=== PATIENT | male | born 1940 | race Caucasian/White ===

== ENCOUNTER → 2020-02-08 08:58 | Outpatient (CLI) | payer MEDICARE, SELFPAY ==
--- NOTE | ~2020-02-08 | XR_ITS ---
EXAMINATION: XR hip RT min 2V DATE: 02/08/2020 09:20 INDICATION: Right hip pain. TECHNIQUE: 2 views of right hip were obtained. COMPARISON: None. FINDINGS: Bone alignment is normal. No fracture. There is advanced right hip osteoarthritis. IMPRESSION: 1. Advanced right hip osteoarthritis. Reviewed, dictated and finalized at location A.
== END ==
PROVIDERS: PCP Family Medicine; Visit Provider Family Medicine
DX: M16.11 Unilateral primary osteoarthritis, right hip (principal)
CPT/HCPCS: 73502

== ENCOUNTER 2020-08-30 00:10 | Emergency (ER) | payer MEDICARE, SELFPAY ==
--- NOTE | ~2020-08-30 | XR_ITS ---
EXAMINATION: XR chest 1V portable INDICATION: Chest pain TECHNIQUE: Portable AP chest at 0047 hours COMPARISON: None available FINDINGS: The lungs are free of acute opacities. There is no pleural effusion or pneumothorax. The ca rdiomediastinal silhouette is normal. There is a prominent epicardial fat pad at the left costophreni c angle. Advanced osteoarthritis is noted in the right shoulder. IMPRESSION: 1. No acute cardiopulmonary abnormality. Reviewed, dictated and finalized at location A.
[2020-08-30 00:19] VITALS: BP 207/93; PULSE 84; RESP 18; TEMP 36.6; O2SAT 96
[2020-08-30] MEDS: ASPIRIN 81 MG CHEWABLE TABLET 324 MG PO (00:36)
--- NOTE | 2020-08-30 00:42 | ED.GENADULT ---
HPI - General Adult General Chief complaint: Chest Pain Stated complaint: CP Time Seen by Provider: 08/30/20 00:19 History of Present Illness HPI narrative: Patient 80-year-old gentleman who presents to the emergency department with chief complaint of chest pain. The patient reports that he was laying down sleeping the night woke up with a fullness feeling in the lower portion of his chest. The patient denies tearing sensation denies a ripping sensation the patient reports that it feels like a heaviness states it was moderate to severe when he was at home and it subsequently improved and is almost gone by the time he arrived to the emergency department. Patient denies abdominal pain denies vomiting denies diarrhea. Patient does report that he has history of an abdominal aortic aneurysm that is followed as an outpatient and has been told that it has not changed in approximately a year in size. Patient stated that the pain did not radiate to his shoulder or back or to his neck. Related Data Allergies Allergy/AdvReac Type Severity Reaction Status Date / Time pravastatin Allergy Unknown Rash Verified 08/08/20 09:32 Review of Systems Review of Systems: Narrative: A 10 system review of systems was completed on the patient and is negative except for what is stated in the HPI. Nursing and ancillary documentation was reviewed. [facility] Past Medical History Medical History AAA (abdominal aortic aneurysm) Chronic right hip pain Degenerative joint disease (DJD) of hip Dyslipidemia Essential (primary) hypertension Type 2 diabetes mellitus without complications Surgical History Surgical History History of hernia repair Family History Family History Mother Family history of kidney disease Father Family history of coronary artery disease Sibling Family history of heart disease in male family member before age 55 Social History Social History Smoking packs per day: 0.5 Smoking cigarettes per day: 10.0 Years smoked: 15 Smoking pack-years: 7.50 Smoking status: Former smoker Smoking end date: 06/06/87 Alcohol intake: current Substance use: never Substance use type: does not use Gender identity (if verbalized by the patient): Male Exam Narrative: Exam Narrative: GENERAL: Well-appearing, well-nourished, and in no acute distress. HEAD: Normocephalic, atraumatic. EYES: PERRLA and EOMI. ENT: Nares clear, no rhinorrhea or epistaxis. Mucous membranes moist. NECK: Supple. CHEST: Clear to auscultation. No respiratory distress. HEART: Regular rate and rhythm. No murmur heard. Normal peripheral pulses. ABDOMEN: Soft, nontender, nondistended, normal active bowel sounds. EXTREMITIES: Normal range of motion. No edema. SKIN: Warm, dry, no rash. NEURO: No focal deficits. Alert and oriented x3. PSYCH: Normal mood and affect. Course Vital Signs Vital signs: Vital Signs Temperature 36.6 C 08/30/20 00:19 Pulse Rate 84 08/30/20 00:19 Respiratory Rate 18 08/30/20 00:19 Blood Pressure 207/93 H 08/30/20 00:19 Pulse Oximetry 96 08/30/20 00:19 Temperature 36.6 C 08/30/20 00:19 Pulse Rate 73 08/30/20 03:06 Respiratory Rate 18 08/30/20 03:06 Blood Pressure 158/82 H 08/30/20 03:06 Pulse Oximetry 97 08/30/20 03:06 Medical Decision Making Vital Signs Vital Signs: Vital Signs Temperature 36.6 C 08/30/20 00:19 Pulse Rate 84 08/30/20 00:19 Respiratory Rate 18 08/30/20 00:19 Blood Pressure 207/93 H 08/30/20 00:19 Pulse Oximetry 96 08/30/20 00:19 Temperature 36.6 C 08/30/20 00:19 Pulse Rate 73 08/30/20 03:06 Respiratory Rate 18 08/30/20 03:06 Blood Pressure 158/82 H 08/30/20 03:06 Pulse Oximetry 97 08/30/20 0
[2020-08-30 00:47] LABS: Basophils Absolute Auto 0.1 K/mm3 (0.0-0.1); Basophils Percent Auto 0.6 % (0.2-1.2); Eosinophils Absolute Auto 0.3 K/mm3 (0-0.3); Eosinophils Percent Auto 4.3 % (0-4.4); Hematocrit 41.4 % (42.0-52.0); Hemoglobin 13.4 g/dL (14.0-18.0); Immature Granulocyte Absolute 0.03 K/mm3 (0.00-0.031); Immature Granulocyte Percent A 0.4 % (0-0.5); Lymphocytes Absolute Auto 1.59 K/mm3 (0.9-3.2); Lymphocytes Percent Auto 20.3 % (18.3-44.2); Mean Corpuscular HGB Conc 32.4 g/dl (32-36); Mean Corpuscular Hemoglobin 29.4 pg (26-34); Mean Corpuscular Volume 90.8 fl (80-100); Mean Platelet Volume 9.5 fl (7.4-10.4); Monocytes Absolute Auto 0.9 K/mm3 (0.1-0.6); Monocytes Percent Auto 10.8 % (2.6-8.5); Neutrophils Percent Auto 63.6 % (45.5-73.1); Platelet Count Result 202 k/mm3 (150-375); Red Blood Count 4.56 M/mm3 (4.6-6.20); Red Cell Distribution Width 13.6 % (11.5-14.5); White Blood Count 7.8 K/mm3 (4.5-10.0)
[2020-08-30 00:59] LABS: INR 0.9; Prothrombin Time 13.1 Seconds (11.1-14.7)
[2020-08-30 01:00] LABS: Partial Thromboplastin Time 31.9 SECONDS (22.3-36.8)
[2020-08-30 01:02] LABS: Alanine Aminotransferase 51 U/L (4-50); Albumin Level 3.7 g/dL (3.5-5.1); Alkaline Phosphatase 55 U/L (38-126); Anion Gap 5 mmol/L (8-16); Aspartate Amino Transferase 83 U/L (17-59); Bilirubin,Total 0.4 mg/dL (0.2-1.3); Blood Urea Nitrogen 35 mg/dL (9-20); Calcium 8.4 mg/dL (8.4-10.2); Carbon Dioxide 28 mmol/L (22-30); Chloride 106 mmol/L (98-107); Estimated CRCL calculation 43 ml/min; Estimated Glomerular Filt Rate 45; Glucose 104 mg/dL (75-110); Lipase 293 U/L (23-300); Potassium 4.2 mmol/L (3.4-5.0); Sodium 139 mmol/L (137-145)
[2020-08-30 01:13] LABS: NT Pro B Type Natriuretic Pept 116 PG/ML (5-100); Troponin I < 0.012 ng/mL (0.000-0.034)
[2020-08-30 02:05] VITALS: BP 156/83; PULSE 75; RESP 16; O2SAT 98
[2020-08-30 03:06] VITALS: BP 158/82; PULSE 73; RESP 18; O2SAT 97
[2020-08-30 03:51] LABS: Troponin I < 0.012 ng/mL (0.000-0.034)
--- NOTE | 2020-08-30 04:07 | ECG_ITS ---
Measurements Intervals [place] Rate: 82 P: 36 SD: 168 QRS: -36 QRSD: 93 T: 12 QT: 336 QTc: 394 Interpretive Statements SINUS RHYTHM LEFT AXIS DEVIATION POOR R WAVE PROGRESSION, ANTERIOR LEADS INFERIOR INFARCT, AGE INDETERMINATE ABNORMAL ECG Electronically Signed On 08-30-2020 7:51:42 CDT by aTyo Aburto D.O.
[2020-08-30 04:13] VITALS: BP 151/81; PULSE 80; RESP 18; O2SAT 97
== END 2020-08-30 04:15 | disposition home or self-care (01) ==
PROVIDERS: Emergency Provider Emergency Medicine; PCP Family Medicine
DX: R07.89 Other chest pain (principal); I71.4 Abdominal aortic aneurysm, without rupture; E78.5 Hyperlipidemia, unspecified; I10 Essential (primary) hypertension; E11.9 Type 2 diabetes mellitus without complications; M16.10 Unilateral primary osteoarthritis, unspecified hip; Z87.891 Personal history of nicotine dependence; R94.31 Abnormal electrocardiogram [ECG] [EKG]
CPT/HCPCS: 36415; 71045; 80053; 83690; 83880; 84484; 85025; 85610; 85730; 93005; 99284; A9270

== ENCOUNTER 2020-09-17 08:24 | Outpatient (CLI) | payer MEDICARE, SELFPAY ==
[2020-09-17 08:53] LABS: Alanine Aminotransferase 139 U/L (4-50); Albumin Level 4.1 g/dL (3.5-5.1); Alkaline Phosphatase 139 U/L (38-126); Anion Gap 5 mmol/L (8-16); Aspartate Amino Transferase 48 U/L (17-59); Bilirubin,Total 1.7 mg/dL (0.2-1.3); Blood Urea Nitrogen 26 mg/dL (9-20); Calcium 9.1 mg/dL (8.4-10.2); Carbon Dioxide 31 mmol/L (22-30); Chloride 105 mmol/L (98-107); Estimated Glomerular Filt Rate 49; Glucose 104 mg/dL (75-110); Potassium 4.9 mmol/L (3.4-5.0); Sodium 141 mmol/L (137-145)
== END 2020-09-17 08:25 | disposition home or self-care (01) ==
PROVIDERS: PCP Family Medicine; Visit Provider Family Medicine
DX: R94.5 Abnormal results of liver function studies (principal)
CPT/HCPCS: 36415; 80053

== ENCOUNTER 2020-09-23 08:46 | Outpatient (CLI) | payer MEDICARE, SELFPAY ==
[2020-09-23 09:47] LABS: Alanine Aminotransferase 66 U/L (4-50); Albumin Level 3.9 g/dL (3.5-5.1); Alkaline Phosphatase 91 U/L (38-126); Anion Gap 5 mmol/L (8-16); Aspartate Amino Transferase 39 U/L (17-59); Blood Urea Nitrogen 29 mg/dL (9-20); Calcium 8.7 mg/dL (8.4-10.2); Carbon Dioxide 28 mmol/L (22-30); Chloride 106 mmol/L (98-107); Estimated Glomerular Filt Rate 42; Glucose 126 mg/dL (75-110); Potassium 4.4 mmol/L (3.4-5.0); Sodium 139 mmol/L (137-145)
== END 2020-09-23 08:47 | disposition home or self-care (01) ==
PROVIDERS: PCP Family Medicine; Visit Provider Family Medicine
DX: R94.5 Abnormal results of liver function studies (principal)
CPT/HCPCS: 36415; 80053

== ENCOUNTER 2020-10-01 08:21 | Outpatient (CLI) | payer MEDICARE, SELFPAY ==
--- NOTE | ~2020-10-01 | US_ITS ---
EXAMINATION: US abdomen limited EXAM DATE: 10/01/2020 09:43 INDICATION: R94.5 - Abnormal results of liver function studies. TECHNIQUE: Multiple grayscale and Doppler images of the abdomen right upper quadrant were obtained (rickie y a technologist who performed the scan) and subsequently reviewed. There is no prior study for julianne eric. FINDINGS: The pancreatic head and body are normal in appearance. The pancreatic tail is not visualized. The l iver has normal echogenicity and contour. There are no focal liver lesions identified. There is no evidence of intrahepatic biliary duct dilation. Portal venous flow was seen in the hepatopedal, nor mal direction and has normal Doppler waveform. No right-sided hydronephrosis. Common bile duct measures 2 mm, which is normal. The gallbladder is distended with wall normal in thi ckness. No sonographic evidence of pericholecystic fluid. Scattered small isoechoic regions along t he gallbladder wall, could be polyps or poorly calcified cholelithiasis. One of these does demonstrat e some shadowing more consistent with cholelithiasis. Couldn't confidently assess mobility due to the undistended gallbladder. Technologist performing exam reports patient did not demonstrate sonographi c Simon's sign. Please note that this sign is less reliable in patients who have received pain medi cation. IMPRESSION: Small gallbladder polyposis and/or cholelithiasis. Reviewed, dictated and finalized at location A.
== END 2020-10-01 08:22 | disposition home or self-care (01) ==
LOC: ANHIMG 08:25
PROVIDERS: PCP Family Medicine; Visit Provider Family Medicine
DX: R94.5 Abnormal results of liver function studies (principal); K82.4 Cholesterolosis of gallbladder
CPT/HCPCS: 76705

== ENCOUNTER 2020-10-07 08:01 | Outpatient (CLI) | payer MEDICARE, SELFPAY ==
[2020-10-07 10:06] LABS: Add Urine Microscopic? NO; Appearance Urine Clear (Clear); Bilirubin Urine Negative (Negative); Blood Urine Negative (Negative); Color Urine Yellow (Yellow); Glucose Urine UA Negative (Negative); Ketones Urine Negative (Negative); Leukocyte Esterase Ur Negative LEU/UL (Negative); Nitrate Urine Negative (Negative); Protein Urine Negative (Negative); Specific Grav Ur 1.016 (1.001-1.035); Urobilinogen Urine Negative mg/dL (<2.0)
[2020-10-07 10:14] LABS: Albumin Level 4.2 g/dL (3.5-5.1)
[2020-10-07 10:20] LABS: Hemoglobin A1C 5.8 % (<5.7)
[2020-10-07 10:33] LABS: Urine Cotinine NEGATIVE
== END 2020-10-07 08:02 | disposition home or self-care (01) ==
LOC: ANHSURGERY 08:04
PROVIDERS: PCP Family Medicine; Visit Provider Orthopaedic Surgery
DX: M16.11 Unilateral primary osteoarthritis, right hip (principal); Z01.818 Encounter for other preprocedural examination
CPT/HCPCS: 80307; 81003; 82040; 83036; 87081

== ENCOUNTER 2020-10-09 11:52 | Outpatient (CLI) | payer MEDICARE, SELFPAY ==
[2020-10-09 12:15] LABS: Anion Gap 8 mmol/L (8-16); Blood Urea Nitrogen 31 mg/dL (9-20); Calcium 9.2 mg/dL (8.4-10.2); Carbon Dioxide 26 mmol/L (22-30); Chloride 106 mmol/L (98-107); Estimated Glomerular Filt Rate 42; Glucose 86 mg/dL (75-110); Potassium 4.9 mmol/L (3.4-5.0); Sodium 140 mmol/L (137-145)
== END 2020-10-09 11:53 | disposition home or self-care (01) ==
LOC: ANHSURGERY 11:54
PROVIDERS: PCP Family Medicine; Visit Provider Orthopaedic Surgery
DX: E11.9 Type 2 diabetes mellitus without complications (principal); Z01.818 Encounter for other preprocedural examination
CPT/HCPCS: 36415; 80048

== ENCOUNTER → 2020-10-18 00:35 | Outpatient (CLI) | payer MEDICARE, SELFPAY ==
[2020-10-18 19:43] LABS: SARS-CoV-2 RNA PCR Negative
== END ==
PROVIDERS: PCP Family Medicine; Visit Provider Orthopaedic Surgery
DX: Z01.812 Encounter for preprocedural laboratory examination (principal); Z20.822 Contact with and (suspected) exposure to COVID-19
CPT/HCPCS: C9803; U0003; U0005

== ENCOUNTER 2020-10-21 01:00 | Day surgery (SDC) | payer MEDICARE, SELFPAY ==
[2020-10-07 08:19] VITALS: BMI 30.7
--- NOTE | 2020-10-20 13:12 | WPDANESEPPF ---
Anes - Initial Pre Proc Eval Procedure: Operation Date: 10/21/20 07:30 Proposed Procedures p Right Total Hip Arthroplasty - Jan David MD Date/Time: 10/20/20 13:12 Surgeon: Jan David MD Pre Op Diagnosis: Right Hip DJD Patient Data Age: 80 Gender: M Height: 5 ft 10 in Weight: 97 kg Allergies Allergy/AdvReac Type Severity Reaction Status Date / Time pravastatin Allergy Unknown Rash Verified 10/21/20 07:09 Baptuas-Dpt-Ssy Reductase AdvReac Joint Verified 10/21/20 07:09 Inhibitor Pain, MUSCLE ACHES Home Medications Medication Instructions Recorded Confirmed Type enalapril maleate 20 mg PO QAM 10/07/20 10/21/20 History gj-cvcc-ipvua-lycopene-ginkgo 1 tablet PO DAILY 10/07/20 10/21/20 History [Daily Multiple For Men 50+] tamsulosin 0.4 mg PO HS 10/07/20 10/21/20 History metformin 500 mg tablet,extended 500 mg PO QAM #90 tablet 10/12/20 10/21/20 Rx release 24 hr Patient hx anesthesia problems: none Family hx anesthesia problems: none PMFSH Past Medical History Medical History AAA (abdominal aortic aneurysm) Chronic right hip pain Degenerative joint disease (DJD) of hip Dyslipidemia Essential (primary) hypertension Type 2 diabetes mellitus without complications Surgical History Surgical History History of hernia repair Family History Family History Mother Family history of kidney disease Father Family history of coronary artery disease Sibling Family history of heart disease in male family member before age 55 Social History Social History Smoking packs per day: 0.5 Smoking cigarettes per day: 10.0 Years smoked: 20 Smoking pack-years: 10.00 Smoking status: Former smoker Tobacco type: cigarettes Smoking end date: 12/05/79 Alcohol intake: current Substance use: never Substance use type: does not use Living arrangements: alone Gender identity (if verbalized by the patient): Male Spiritual care concerns: No Anes - Eval Final PreProcedure Day of Procedure 10/20/20 13:12 Patient weight: overweight Heart: regular rate and rhythm Lungs: clear to auscultation Airway: Mallampati scale class III Neurological: alert and oriented Last oral intake: >/= 8 hours ASA classification: III Emergent: no Anesthetic plan: proceed Anesthesia type and monitoring: general ETT and standard monitoring Informed Consent: The patient's anesthetic plan and its attendant risks and benefits were discussed with the patient/family/POA. Questions were solicited and answers provided to the satisfaction of the patient/family/POA.
[2020-10-21] VITALS (14 sets, daily range): BP systolic 121–142; BP diastolic 61–75; PULSE 67–100; RESP 12–18; TEMP 35.8–37.1; O2SAT 93–98; BMI 30.2
--- NOTE | ~2020-10-21 | XR_ITS ---
EXAMINATION: XR hip RT 1V DATE: 10/21/2020 10:31 INDICATION: Right hip arthroplasty. Postop. TECHNIQUE: A single view of right hip was obtained. COMPARISON: Right hip radiographs 10/09/2020 FINDINGS: There is a total right hip arthroplasty in near-anatomic alignment. No fracture. There is g as in the soft tissues, consistent with recent surgery. IMPRESSION: 1. Total right hip arthroplasty in near-anatomic alignment. Reviewed, dictated and finalized at location A.
[2020-10-21] MEDS: LACTATED RINGERS 1,000 ML 30 ML IV CONT ×2 (06:51→10:13)
[2020-10-21] MEDS: ACETAMINOPHEN 500 MG TABLET 1000 MG PO (06:52)
[2020-10-21] MEDS: TRANEXAMIC ACID 1,000MG/ISO100 1,000 MG/100 ML BAG 200 MG IVPB (06:52)
[2020-10-21 07:09] LABS: Glucose Point of Care 97 (65-105)
--- NOTE | 2020-10-21 07:22 | WPDHPUPDATE1 ---
History and Physical Update Update Date/Time: 10/21/20 07:23 History and Physical has been reviewed, including an updated exam of the patient. There are NO changes in the patient's condition. Risks, benefits, and alternatives have been discussed and questions answered. Patient agrees to proceed with procedure.
[2020-10-21] MEDS: ceFAZolin 2 GM/D5W 50 ML 2 GM/50 ML BAG IVPB ×2 (07:40→16:57)
[2020-10-21] MEDS: TRANEXAMIC ACID 1,000 MG/10 ML AMPUL 1000 MG IV PUSH (09:26)
--- NOTE | 2020-10-21 10:21 | PM.PROC ---
Procedure Note - Detailed Date of procedure: 10/21/20 Pre-op diagnosis: Right Hip DJD R HIP DJD Post-op diagnosis: same Procedure performed: R OMI Description of procedure: THE PATIENT WAS TAKEN TO THE OPERATING ROOM IN STABLE CONDITION AND WAS PLACED IN THE LATERAL DECUBITUS AND THE RIGHT LOWER EXTREMITY WAS PREPPED AND DRAPED IN THE STERILE FASHION. INCISION WAS MADE IN THE POSTERIOR LATERAL SIDE OF THE HIP, DOWN TO THE FASCIA LAYER. THE FASCIA WAS INCISED. THE HIP WAS EXPOSED. THE SHORT EXTERNAL ROTATORS WERE EXPOSED. THE SCIATIC NERVE WAS IDENTIFIED. THERE WAS A HIGH BIFURCATION OF THE NERVE. INCISION WAS MADE THROUGH THE SORT EXTERNAL ROTATORS AND THE CAPSULE OF THE HIP JOINT. THE HIP WAS DISLOCATED. AN OSTEOTOMY WAS MADE TO THE FEMORAL NECK ABOUT 1 CM PROXIMAL TO THE LESSER TROCHANTER. THE ACETABULUM WAS EXPOSED. THERE WAS SEVERE DJD SEEN. BEGINNING WITH A 44 REAMER THE ACETABULUM WAS REAMED TO 53 MM. A 53 MM TRIAL WAS PLACED IN 35 DEG OF ABDUCTION AND ANTEVERSION WAS IN ALIGNMENT WITH THE TRANS ACETABULAR LIGAMENT. THE FIT WAS EXCELLENT. THE TRIAL WAS REMOVED. A 54 MM BIOMET G7 COMPONENT WAS THEN TAPPED IN TO PLACE IN 35 DEG OF ABDUCTION AND ANTEVERSION IN ALIGNMENT WITH THE TRANSVERSE ACETABULAR LIGAMENT. THE FIT WAS EXCELLENT. THE ACETABULAR LINER WAS PLACED AND CHECKED FOR STABILITY. NEXT THE FEMUR WAS PREPARED WITH INITIAL CANAL FINDER THEN SEQUENTIAL BROACHING WITH A TAPERLOC HIP SYSTEM, UNTIL A 12 BROACH FIT WELL IN 15 OF ANTEVERSION. A +3 STANDARD OFFSET NECK WITH 36 MM HEAD TRIAL WAS PLACED. THE VALERIE TEST WAS EXCELLENT AND THE STABILITY IN FLEXION AND ROTATION WAS EXCELLENT. LEG LENGTHS WERE GROSSLY EQUAL. TRIALS WERE REMOVED. A BIOMET TAPERLOC 12 STEM WAS PLACED WITH A STANDARD OFFSET NECK. THE FIT WAS EXCELLENT IN 15 DEG OF ANTEVERSION. A +3 CERAMIC 36 MM FEMORAL HEAD WAS PLACED. THE HIP WAS TRIALED AND THE STABILITY WAS EXCELLENT WERE THE LEG LENGTHS AND THE SCHUK TEST. THE WOUND WAS IRRIGATED WITH STERILE BETADINE AND WATER FOR 3 MIN. THEN WASHED AGAIN. THE CAPSULE AND THE EXTERNAL ROTATORS WERE APPROXIMATED WITH NUMBER 1 VICRYL. THE FASCIA WITH No 2 QUIL AND THE SUB CUTANEOUS LAYER WITH 2-0 ABSORBABLE SUTURE WITH A RUNNING 3-0 SUBCUTICULAR LAYER WELL. DERMABOND WAS PLACED AND STERILE DRESSING WAS APPLIED. PATIENT WAS PLACED BACK ON TO THE SUPINE POSITION AND WAS EXTUBATED. Anesthesia: GETA Surgeon: Jan David MD Estimated blood loss (mL): 500 Drains: No Complications: No immediate complications Condition: stable Disposition: PACU
[2020-10-21 11:01] LABS: Hemoglobin 12.3 g/dL (14.0-18.0)
[2020-10-21 11:11] LABS: Glucose Point of Care 148 (65-105)
--- NOTE | 2020-10-21 11:48 | ADMGEN ---
This patient, Jerry Palm, was admitted to 2 Medical Room 241-01. Patient/family oriented to hospital policies and general routines including ID bracelet, bed and alarms, visiting hours, pain management, procedures, bathroom and other care routines, personal items, smoking policy, room service/diet, and visiting hours. Information on how to activate the Rapid Response Team has been discussed. Patient/Family are encouraged to report perceived risks to care and to ask questions if they do not understand what they are told or what they should do.
[2020-10-21] MEDS: SODIUM CHLORIDE 0.9% IV 1,000 ML 125 ML IV CONT (12:16)
--- NOTE | 2020-10-21 13:25 | WPDCN ---
Assessment and Plan Assessment and plan (1) Degenerative joint disease (DJD) of hip: Qualifiers: Laterality: right Osteoarthritis type: primary Qualified Code(s): M16.11 - Unilateral primary osteoarthritis, right hip Code(s): M16.9 - Osteoarthritis of hip, unspecified Status: Acute (2) Essential (primary) hypertension: Code(s): I10 - Essential (primary) hypertension Status: Acute (3) Dyslipidemia: Code(s): E78.5 - Hyperlipidemia, unspecified Status: Acute (4) Chronic kidney disease, stage 3: Code(s): N18.30 - Chronic kidney disease, stage 3 unspecified Status: Acute (5) Prediabetes: Code(s): R73.03 - Prediabetes Status: Acute Additional Plan The patient is status post elective right total hip arthroplasty postoperative day 0. Wound care, pain control, and DVT prophylaxis will be deferred to Dr. David. Blood pressures were reviewed and are stable thus will resume enalapril tomorrow morning. Patient does have BPH and will be monitored closely for urinary retention in the postoperative phase. CBC and CMP ordered for a.m. Recent hemoglobin A1c of 5.8%. Thank you for allowing us to participate in this patient's care. Please do not hesitate to contact us with any questions. Supervising physician for this medical consultation is Dr. Fernanda Phoenix. [facility] Data of Consult Date/Time: 10/21/20 13:25 Requesting Physician: Jan David MD Primary Care Provider: Manish Bravo MD Consult Narrative Narrative: This is a 80 year male with degenerative joint disease of the right hip status post elective right total hip arthroplasty whom hospitalist service has been consulted for management of his medical conditions. Aside from osteoarthritis his history is significant for hypertension, hyperlipidemia, benign prostatic hyperplasia, prediabetes, chronic kidney disease, and abdominal aortic aneurysm. He reports right hip dating back almost 10 years but it has gotten much worse over the last year. He has pain a majority of the day and it even wakes him up at night. Unfortunately conservative outpatient treatment has not provided him with longstanding relief and thus he elected for replacement today. His surgery was performed under general anesthesia with no immediate complications documented and an estimated blood loss of 500 mL. Postoperatively he has been doing quite well. He has minimal pain and has been ambulating with a walker with PT. He denies fever, chills, sweats, chest pain, shortness of breath, nausea, and vomiting. No paresthesias, skin color, or temperature changes distal to the surgical site. Review of Systems Review of Systems: Narrative: Twelve systems were reviewed with pertinent positives and negatives as per HPI. No recent illness. Had a negative COVID swab prior to surgery. Negative stress test as well. No chest pain or shortness of breath. No history of venous thromboembolism. Except as documented, all other systems were reviewed and are negative. [facility] Past Medical History Medical History (Updated 10/22/20 @ 00:37 by Melinda Kaur PA-C) Abdominal aortic aneurysm Stable. Followed by vascular surgery at [facility]. Benign prostatic hyperplasia Chronic kidney disease, stage 3 Baseline creatinine ranges between 1.4 and 1.60. Degenerative joint disease (DJD) of hip Dyslipidemia Essential (primary) hypertension Normal cardiac stress test (09/2020) Prediabetes Surgical History Surgical History (Updated 10/21/20 @ 13:30 by Melinda Kaur PA-C) History of hydrocelectomy (10/19/12) Left-sided hydrocelectomy. History of right inguinal hernia repair (10/19/12) History of tonsillectomy History of total right hip arthroplasty (10/21/20) Family History Family History Mother Family history o
[2020-10-21] MEDS: HYDROcodone/acetaminophen (*CRX) 7.5-325 MG TABLET 1 TAB PO ×2 (14:22→18:29)
[2020-10-21] MEDS: DOCUSATE SODIUM 100 MG CAPSULE PO (16:57)
[2020-10-21 18:13] LABS: Glucose Point of Care 156 mg/dl (65-105)
[2020-10-21] MEDS: FAMOTIDINE 20 MG TABLET PO (22:23)
[2020-10-21] MEDS: TAMSULOSIN HCL 0.4 MG CAPSULE PO (22:23)
[2020-10-21 22:45] LABS: Glucose Point of Care 129 mg/dl (65-105)
[2020-10-22] MEDS: ceFAZolin 2 GM/D5W 50 ML 2 GM/50 ML BAG IVPB ×2 (00:02→08:15)
[2020-10-22 01:05] VITALS: BP 96/50; PULSE 88; RESP 16; TEMP 37.1; O2SAT 94
[2020-10-22 05:13] VITALS: BP 146/67; PULSE 87; RESP 18; TEMP 36.8; O2SAT 95
[2020-10-22] MEDS: HYDROcodone/acetaminophen (*CRX) 7.5-325 MG TABLET 1 TAB PO ×2 (05:19→12:38)
[2020-10-22 05:44] LABS: Basophils Percent Auto 0.2 % (0.2-1.2); Eosinophils Percent Auto 0.1 % (0-4.4); Immature Granulocyte Absolute 0.05 K/mm3 (0.00-0.031); Immature Granulocyte Percent A 0.4 % (0-0.5); Lymphocytes Absolute Auto 1.49 K/mm3 (0.9-3.2); Lymphocytes Percent Auto 11.8 % (18.3-44.2); Mean Corpuscular HGB Conc 32.4 g/dl (32-36); Mean Corpuscular Hemoglobin 29.1 pg (26-34); Mean Corpuscular Volume 89.8 fl (80-100); Mean Platelet Volume 10.2 fl (7.4-10.4); Monocytes Absolute Auto 1.4 K/mm3 (0.1-0.6); Monocytes Percent Auto 11.1 % (2.6-8.5); Neutrophils Absolute Auto 9.7 K/mm3 (1.3-6.7); Neutrophils Percent Auto 76.4 % (45.5-73.1); Platelet Count Result 240 k/mm3 (150-375); Red Blood Count 4.12 M/mm3 (4.6-6.20); Red Cell Distribution Width 13.6 % (11.5-14.5); White Blood Count 12.6 K/mm3 (4.5-10.0)
[2020-10-22 05:55] LABS: Albumin Level 3.7 g/dL (3.5-5.1); Alkaline Phosphatase 46 U/L (38-126); Anion Gap 9 mmol/L (8-16); Aspartate Amino Transferase 50 U/L (17-59); Bilirubin,Total 0.7 mg/dL (0.2-1.3); Blood Urea Nitrogen 19 mg/dL (9-20); Calcium 8.6 mg/dL (8.4-10.2); Carbon Dioxide 23 mmol/L (22-30); Chloride 105 mmol/L (98-107); Estimated CRCL calculation 39 ml/min; Estimated Glomerular Filt Rate 42; Glucose 129 mg/dL (75-110); Potassium 4.5 mmol/L (3.4-5.0); Sodium 137 mmol/L (137-145)
[2020-10-22 06:02] LABS: Alanine Aminotransferase 31 U/L (4-50)
[2020-10-22] MEDS: DOCUSATE SODIUM 100 MG CAPSULE PO (08:22)
[2020-10-22] MEDS: ASPIRIN 325 MG ENTERIC TABLET 650 MG PO (08:22)
[2020-10-22] MEDS: MULTIVITAMINS /C LUTEIN (CENTRUM SILVER) TABLET *BKC 1 TAB PO (08:22)
[2020-10-22] MEDS: CELECOXIB 200 MG CAPSULE PO (08:22)
[2020-10-22] MEDS: metFORMIN HCL XR 500 MG TAB.SR.24H PO (08:22)
[2020-10-22] MEDS: FAMOTIDINE 20 MG TABLET PO (08:22)
[2020-10-22] MEDS: ENALAPRIL MALEATE 10 MG TABLET 20 MG PO (08:22)
--- NOTE | 2020-10-22 08:23 | WPDANESPN ---
Anes - Prog Note Post-Op Date/Time: 10/22/20 08:23 Cardiovascular status: normal Respiratory status: normal Airway patency: baseline Mental status: baseline Post-Op hydration status: normal Vital Signs: Last Vital Signs Temp 36.8 C 10/22/20 05:13 Pulse 87 10/22/20 05:13 Resp 18 10/22/20 05:13 BP 146/67 H 10/22/20 05:13 Pulse Ox 95 10/22/20 05:13 Pain Score (VAS): 5 I/O: Intake & Output 10/21/20 10/22/20 10/22/20 23:59 07:59 15:59 Intake Total 1330 150 Output Total 350 400 Balance 980 -250 Laboratory Tests 10/22/20 05:16 10/22/20 05:16 10/21/20 10/21/20 10/21/20 06:50 10:17 10:52 WBC RBC Hgb 12.3 L Hct 39.0 L MCV MCH MCHC RDW Plt Count MPV Immature Gran % (Auto) Neut % (Auto) Lymph % (Auto) [place] % (Auto) Eos % (Auto) Baso % (Auto) Lymph # (Auto) [place] # (Auto) Eos # (Auto) Baso # (Auto) Abs Immat Gran (auto) Absolute Neuts (auto) Absolute Nucleated RBC Nucleated RBC % Sodium Potassium Chloride Carbon Dioxide Anion Gap BUN Creatinine Estim Creat Clear Calc Estimated GFR Glucose POC Capillary Glucose 148 H Calcium Total Bilirubin Direct Bilirubin AST ALT Alkaline Phosphatase Total Protein Albumin Blood Type A Positive Antibody Screen Negative 10/21/20 10/21/20 10/22/20 16:59 22:31 05:16 WBC RBC Hgb Hct MCV MCH MCHC RDW Plt Count MPV Immature Gran % (Auto) Neut % (Auto) Lymph % (Auto) [place] % (Auto) Eos % (Auto) Baso % (Auto) Lymph # (Auto) [place] # (Auto) Eos # (Auto) Baso # (Auto) Abs Immat Gran (auto) Absolute Neuts (auto) Absolute Nucleated RBC Nucleated RBC % Sodium 137 Potassium 4.5 Chloride 105 Carbon Dioxide 23 Anion Gap 9 BUN 19 D Creatinine 1.60 H Estim Creat Clear Calc 39 Estimated GFR 42 L Glucose 129 H POC Capillary Glucose 156 H 129 H Calcium 8.6 Total Bilirubin 0.7 Direct Bilirubin 0.0 AST 50 ALT 31 Alkaline Phosphatase 46 Total Protein 7.0 Albumin 3.7 Blood Type Antibody Screen 10/22/20 05:16 WBC 12.6 H RBC 4.12 L Hgb 12.0 L Hct 37.0 L MCV 89.8 MCH 29.1 MCHC 32.4 RDW 13.6 Plt Count 240 MPV 10.2 Immature Gran % (Auto) 0.4 Neut % (Auto) 76.4 H Lymph % (Auto) 11.8 L [place] % (Auto) 11.1 H Eos % (Auto) 0.1 Baso % (Auto) 0.2 Lymph # (Auto) 1.49 [place] # (Auto) 1.4 H Eos # (Auto) 0.0 Baso # (Auto) 0.0 Abs Immat Gran (auto) 0.05 H Absolute Neuts (auto) 9.7 H Absolute Nucleated RBC 0.0 Nucleated RBC % 0.0 Sodium Potassium Chloride Carbon Dioxide Anion Gap BUN Creatinine Estim Creat Clear Calc Estimated GFR Glucose POC Capillary Glucose Calcium Total Bilirubin Direct Bilirubin AST ALT Alkaline Phosphatase Total Protein Albumin Blood Type Antibody Screen Post-procedural complaints: none Patient Feedback: Patient satisfied with anesthetic care.
[2020-10-22 08:46] LABS: Glucose Point of Care 129 mg/dl (65-105)
[2020-10-22 10:00] VITALS: BP 106/61; PULSE 98; RESP 18; TEMP 36.6; O2SAT 98
[2020-10-22 11:43] LABS: Glucose Point of Care 105 mg/dl (65-105)
--- NOTE | 2020-10-22 12:03 | PM.IMPN ---
Progress Note: A&P Assessment and Plan (1) Status post right hip replacement: Code(s): Z96.641 - Presence of right artificial hip joint Status: Acute Assessment and Plan: POD#1 elective right total hip arthroplasty by Dr. David 10/21/20. Wound care, DVT prophylaxis, pain control management per the orthopedic service. (2) History of hip replacement: Code(s): Z96.649 - Presence of unspecified artificial hip joint Status: Acute (3) Essential (primary) hypertension: Code(s): I10 - Essential (primary) hypertension Status: Chronic Assessment and Plan: Blood pressures reviewed and are appropriate, borderline low last this afternoon 105/53 maintained on his home enalapril. Monitor BP and adjust treatment as needed. (4) Chronic kidney disease, stage 3: Qualifiers: Chronic kidney disease stage 3 subtype: stage 3b (GFR 30-44) Qualified Code(s): N18.32 - Chronic kidney disease, stage 3b Code(s): N18.30 - Chronic kidney disease, stage 3 unspecified Status: Chronic Assessment and Plan: Follows with Dr. Luke and has an upcoming appointment after surgery. Cr elevated at 1.6; was 1.4-1.6 in September preoperatively. Stable. (5) Prediabetes: Code(s): R73.03 - Prediabetes Status: Chronic Assessment and Plan: Hgb A1c 5.8% October 07. Blood sugars are adequate maintained on his home metformin. Continue to monitor with accu-cheks and adjust treatment as needed, cover with SSI. Additional Plan Thank you for allowing me to participate in this pleasant gentleman's care. Do not hesitate to reach out for any questions or concerns. Patient is medically stable for discharge from hospitalist standpoint. Recommend continuing all of his home medications at the current dosages. Subjective Date/time seen: 10/22/20 1145 Interval history: Mr. Palm is a very pleasant 80yo M seen in follow up for medical management POD#1 s/p elective right total hip arthroplasty. He tolerated the procedure well and is feeling well today. His pain is well controlled. He has tolerated breakfast without nausea or vomiting. Denies chest pain or shortness of breath. He walked and participated with therapy this morning and offers no complaints. Review of Systems Review of Systems: All systems reviewed & are unremarkable except as noted in HPI and below Exam Narrative: Exam Narrative: General: Well-developed male resting sitting up in bed in no acute distress. HEENT: Normocephalic. EOMI. Oral mucosa moist. Neck: Supple. Respiratory: Lungs are clear to auscultation bilaterally. Respirations even and nonlabored. Tolerating room air. Cardiovascular: Rate and rhythm regular. Gastrointestinal: Abdomen is soft, nontender, and nondistended with positive bowel sounds. Skin: Warm and dry. No rash or lesions on limited exam. Extremities: No cyanosis, clubbing, or edema. Radial and pedal pulses intact. Musculoskeletal: Right hip dressing is clean, dry, and intact. He is neurovascularly intact distal to the surgical site. Neurological: Awake and alert, answers questions appropriately. No focal neurological deficits are noted. Speech is clear. Psychiatric: Pleasant and cooperative with normal mood and affect. Judgment and insight intact. Objective Data Vital Signs Vital Signs: Last Vital Signs Temp 98.9 F 10/22/20 14:00 Pulse 87 10/22/20 14:00 Resp 18 10/22/20 14:00 BP 105/53 L 10/22/20 14:00 Pulse Ox 99 10/22/20 14:00 Intake/Output Intake/Output: Intake & Output 10/19/20 10/20/20 10/21/20 10/22/20 23:59 23:59 23:59 23:59 Intake Total 1670 390 Output Total 350 400 Balance 1320 -10 Meds/Results Medications: Active
[2020-10-22 14:00] VITALS: BP 105/53; PULSE 87; RESP 18; TEMP 37.2; O2SAT 99
--- NOTE | 2020-10-22 14:35 | PM.PNORT ---
Progress Note: A&P Additional Plan POD 1 DOING WELL AND STABLE. HE WILL BE DISCHARGED TODAY AND F/U IN 3 WEEKS. Subjective Subjective Date/Time Seen: 10/22/20 14:35 POD 1 DOING WELL WITH MINIMAL PAIN. NO CALF PAIN Exam Extrem: Other: VSS AFEBRILE DRESSING DRY NV INTACT MINIMAL SWELLING, CALF SOFT NON TENDER NEG HOMANS SIGN Objective Data Vital Signs Vital Signs: Vital Signs - 24 hr 10/21/20 17:45 10/21/20 21:13 10/22/20 01:05 Temperature 36.2 C L 37.1 C 37.1 C Pulse Rate 93 94 88 Respiratory Rate 18 16 16 Blood Pressure 142/72 H 124/73 96/50 L Pulse Oximetry 97 94 94 10/22/20 05:13 10/22/20 10:00 Temperature 36.8 C 36.6 C Pulse Rate 87 98 Respiratory Rate 18 18 Blood Pressure 146/67 H 106/61 Pulse Oximetry 95 98 Intake/Output Intake/Output: Intake & Output 10/19/20 10/20/20 10/21/20 10/22/20 23:59 23:59 23:59 23:59 Intake Total 1670 630 Output Total 350 400 Balance 1320 230 Meds/Results Medications: Active Medications Generic Name Dose Route Start Last Admin Trade Name Freq PRN Reason Stop Dose Admin Acetaminophen 650 mg 10/21/20 11:28 Acetaminophen 325 Mg Tablet PO Q6H PRN Mild Pain (1-3) or Fever Hydrocodone Bitart/Acetaminophen 1 tab 10/21/20 11:28 10/22/20 12:38 Hydrocodone/Acetaminophen (*Crx) 7.5-325 Mg Tablet PO 1 tab Q3H PRN Administration Pain Rated 4-6 Al Hydrox/Mg Hydrox/Simethicone 30 ml 10/21/20 11:28 Mag Hydrox/Al Hydrox/Simeth 30 Ml Udc PO Q6H PRN Indigestion Aspirin 650 mg 10/22/20 09:00 10/22/20 08:22 Aspirin 325 Mg Enteric Tablet PO 650 mg DAILY LONG Administration Celecoxib 200 mg 10/22/20 09:00 10/22/20 08:22 Celecoxib 200 Mg Capsule PO 200 mg DAILY LONG Administration Dextrose 12.5 gm 10/21/20 13:47 Dextrose 50% 25 Gm/50 Ml Syringe IV PUSH PRN PRN Hypoglycemia Protocol Diazepam 5 mg 10/21/20 11:28 Diazepam (*Crx) 5 Mg Tablet PO Q6H PRN Anxiety/Muscle Spasm Docusate Sodium 100 mg 10/21/20 17:00 10/22/20 08:22 Docusate Sodium 100 Mg Capsule PO 100 mg BID LONG Administration Enalapril Maleate 20 mg 10/22/20 09:00 10/22/20 08:22 Enalapril Maleate 10 Mg Tablet PO 20 mg QAM LONG Administration Famotidine 20 mg 10/21/20 21:00 10/22/20 08:22 Famotidine 20 Mg Tablet PO 20 mg Q12HR LONG Administration Glucagon 1 mg 10/21/20 13:47 Glucagon For Inj 1 Mg Vial IM PRN PRN Hypoglycemia Protocol Glucose 15 gm 10/21/20 13:47 Glucose Oral Gel 15 Gm Of Glucse In 37.5 Gm Tube PO PRN PRN Hypoglycemia Protocol Dextrose 1,000 mls @ 100 mls/hr 10/21/20 13:47 Dextrose 5% 1,000 Ml IVPB PRN PRN Hypoglycemia Protocol Insulin Aspart 2 - 5 units 10/21/20 17:00 10/22/20 12:05 Insulin Aspart (*Bkc) 100 Units/Ml SUB-Q Not Given TIDWM [facility] Protocol Magnesium Hydroxide 30 ml 10/21/20 11:28 Magnesium Hydroxide Susp 30 Ml Udc PO BID PRN Constipation Metformin HCl 500 mg 10/22/20 09:00 10/22/20 08:22 Metformin Hcl Xr 500 Mg Tab.Sr.24h PO 500 mg QAM LONG Administration Morphine Sulfate 3 mg 10/21/20 11:28 Morphine Sulfate (*Crx) 4 Mg/Ml Inj IV PUSH Q3H PRN Pain Rated 7-10 Multivitamins/Minerals 1 tab 10/22/20 09:00 10/22/20 08:22 Multivitamins /C Lutein (Centrum Silver) Tablet *Bkc PO 11/21/20 09:01 1 tab DAILY LONG Administration Naloxone HCl 0.1 mg 10/21/20 11:28 Naloxone Hcl 0.4 Mg/Ml Vial IV PUSH Q2M PRN Opiate Reversal Ondansetron HCl 4 mg 10/21/20 11:28 Ondansetron Inj 4 Mg/2 Ml Vial IV PUSH Q4H PRN Nausea And Vomiting Tamsulosin HCl 0.4 mg 10/21/20 21:00 10/21/20 22:23 Tamsulosin Hcl 0.4 Mg Capsule PO 0.4 mg HS LONG Administration Radiology Results: ITS Impressions Hip X-Ray 10/21/20 10:34 IMPRESSION: 1. Total right hip arthroplasty in near-anatomic alignment.
--- NOTE | 2020-10-22 14:41 | PM.DS ---
DS: Admitting Diagnosis Admitting Diagnosis Admitting Diagnosis: R HIP DJD DS: Discharge Diagnosis Discharge Diagnosis (1) Degenerative joint disease (DJD) of hip: Qualifiers: Osteoarthritis type: primary Laterality: right Qualified Code(s): M16.11 - Unilateral primary osteoarthritis, right hip Code(s): M16.9 - Osteoarthritis of hip, unspecified Status: Acute Assessment and Plan: HOME WITH HOME HEALTH. F/U IN 3 WEEKS DS: Summary Hospital Course Reason for hospitalization: R OMI Hospital Course: PATIENT AN UNEVENTFUL RIGHT OMI AND REMAINED STABLE THROUGHOUT HIS HOSPITAL STAY. HE DID WELL WITH PT AND HIS PAIN WAS WELL CONTROLLED. HE WAS TAKING GOOD PO INTAKE. HE WOULD BE DISCHARGED TO HOME WITH HOME NURSING AND WOULD F/U IN 3 WEEKS Time spent discussing smoking cessation with patient: more than 10 minutes Status at Discharge Functional status at discharge: uses cane/walker Time Spent with Patient Time attestation: Total time spent providing and/or coordinating discharge services: Time spent: Less than 30 minutes DS: Data Data Completed and Pending Labs on day of discharge: Labs from last 24 hours 10/22/20 10/22/20 10/22/20 11:35 08:14 05:16 WBC 12.6 H RBC 4.12 L Hgb 12.0 L Hct 37.0 L MCV 89.8 MCH 29.1 MCHC 32.4 RDW 13.6 Plt Count 240 MPV 10.2 Immature Gran % (Auto) 0.4 Neut % (Auto) 76.4 H Lymph % (Auto) 11.8 L [place] % (Auto) 11.1 H Eos % (Auto) 0.1 Baso % (Auto) 0.2 Lymph # (Auto) 1.49 [place] # (Auto) 1.4 H Eos # (Auto) 0.0 Baso # (Auto) 0.0 Abs Immat Gran (auto) 0.05 H Absolute Neuts (auto) 9.7 H Absolute Nucleated RBC 0.0 Nucleated RBC % 0.0 Sodium Potassium Chloride Carbon Dioxide Anion Gap BUN Creatinine Estim Creat Clear Calc Estimated GFR Glucose POC Capillary Glucose 105 129 H Calcium Total Bilirubin Direct Bilirubin AST ALT Alkaline Phosphatase Total Protein Albumin 10/22/20 10/21/20 10/21/20 05:16 22:31 16:59 WBC RBC Hgb Hct MCV MCH MCHC RDW Plt Count MPV Immature Gran % (Auto) Neut % (Auto) Lymph % (Auto) [place] % (Auto) Eos % (Auto) Baso % (Auto) Lymph # (Auto) [place] # (Auto) Eos # (Auto) Baso # (Auto) Abs Immat Gran (auto) Absolute Neuts (auto) Absolute Nucleated RBC Nucleated RBC % Sodium 137 Potassium 4.5 Chloride 105 Carbon Dioxide 23 Anion Gap 9 BUN 19 D Creatinine 1.60 H Estim Creat Clear Calc 39 Estimated GFR 42 L Glucose 129 H POC Capillary Glucose 129 H 156 H Calcium 8.6 Total Bilirubin 0.7 Direct Bilirubin 0.0 AST 50 ALT 31 Alkaline Phosphatase 46 Total Protein 7.0 Albumin 3.7 Discharge Plan Discharge Patient Disposition: Home Health Service Discharge Instructions: Post Op Total Hip Replacement Instructions Dr. Jan David [phone] ?Your dressing will be changed prior to your discharge. You will be sent home with one additional dressing to be changed in 5 days by the home health RN. Your incision was closed with dermabond, allow the dermabond to fall off naturally and do not disrupt incision healing. ?You may shower with your dressing but do not submerge in a bath tub. ?Do not drive or operate machinery until you are released by Dr. David. ?Do not walk without a walker for any reason until you are released by Dr. David. MAINTAIN TOE TOUCH WEIGHT BEARING. ?Continue to apply ice to the hip intermittently for additional pain relief. Protect your skin with a towel or pillow case. ?Continue to follow strict total hip replacement precautions. ?Your follow up appointment is indicated in your discharge instructions. ?Your medications have been sent to your pharmacy. ?Please contact our office with any questions/concerns regarding your knee at
--- NOTE | 2020-10-22 16:00 | PC.NURSE ---
Changed right hip dressing. New Mepilex AG dressing applied. Incision well approximated. No s/s infection noted. Gave patient a second Mepilex dressing to take home for HH nurse to change dressing in 5 days per d/c instructions.
== END 2020-10-22 16:10 | disposition home health service (06) ==
LOC: ANHSURGERY 06:02 → ANH2MED 11:40
PROVIDERS: Physician Assistant; PCP Family Medicine; Visit Provider Orthopaedic Surgery
PROC: (CPT 27130; principal; 2020-10-21 07:30)
DX: M16.11 Unilateral primary osteoarthritis, right hip (principal); I12.9 Hypertensive chronic kidney disease with stage 1 through stage 4 chronic kidney disease, or unspecified chronic kidney disease; N18.30 Chronic kidney disease, stage 3 unspecified; N40.0 Benign prostatic hyperplasia without lower urinary tract symptoms; R73.03 Prediabetes; E78.5 Hyperlipidemia, unspecified; I71.4 Abdominal aortic aneurysm, without rupture; Z79.84 Long term (current) use of oral hypoglycemic drugs; Z87.891 Personal history of nicotine dependence
CPT/HCPCS: 27130; 36415; 73501; 80048; 80076; 82948; 85014; 85018; 85025; 86850; 86900; 86901; 97110; 97116; 97161; 97165; 97530; 97535; A9270; C1713; C1776; J0171; J0690; J1100; J1170; J2270; J2405; J2704; J2710; J2795; J3010; J7030; J7120

== ENCOUNTER 2021-01-15 08:43 | Inpatient (IN) | payer MEDICARE, SELFPAY ==
[2021-01-15] VITALS (7 sets, daily range): BP systolic 111–147; BP diastolic 57–73; PULSE 84–99; RESP 14–20; TEMP 36.1–36.7; O2SAT 95–98
--- NOTE | ~2021-01-15 | US_ITS ---
EXAMINATION: US renal BI DATE: 01/16/2021 13:24 INDICATION: Urinary retention TECHNIQUE: Multiple grayscale and Doppler ultrasound images of the kidneys were obtained. COMPARISON: None. FINDINGS: The right kidney measures 13.7 x 5.9 x 6.7 cm. The left kidney measures 11.3 x 5.6 x 7.0 cm . The kidneys demonstrate normal parenchymal echogenicity. There is no hydronephrosis. The bladder is decompressed by Laurent catheter. IMPRESSION: 1. Normal kidneys without hydronephrosis. Reviewed, dictated and finalized at location B.
--- NOTE | 2021-01-15 09:42 | ECG_ITS ---
Measurements Intervals [place] Rate: 86 P: -2 AK: 168 QRS: -38 QRSD: 90 T: -12 QT: 339 QTc: 406 Interpretive Statements SINUS RHYTHM LEFT AXIS DEVIATION POOR R WAVE PROGRESSION, ANTERIOR LEADS BORDERLINE T WAVE ABNORMALITY- INFERIOR LEADS BORDERLINE ECG Electronically Signed On 01-15-2021 10:33:51 CDT by Tayo Aburto D.O.
--- NOTE | 2021-01-15 09:42 | ED.WEAKNESS ---
HPI - Weakness General Chief complaint: Recheck/Abnormal Lab/Rx Stated complaint: not feeling well Time Seen by Provider: 01/15/21 09:33 History of Present Illness HPI Narrative: 80 yo male w/ h/o htn, DM presents to the ED c/o not feeling well. He reports that this started abruptly on January 01. Since that time he has had fatigue, poor appetite, urinary frequency, occasional light headedness. He was seen at his PCP office this morning and had low blood pressure and seemed unsteady on his feet. He has had his COVID vaccine. No fever, Nausea, vomiting, diarrhea, dysuria, hematuria, syncope, cough, congestion, SOB, CP. Related Data Home Medications Medication Instructions Recorded Confirmed enalapril maleate 20 mg PO QAM 10/07/20 01/15/21 pk-katn-xuvpq-lycopene-ginkgo 1 tablet PO DAILY 10/07/20 01/15/21 Allergies Allergy/AdvReac Type Severity Reaction Status Date / Time pravastatin Allergy Unknown Rash Verified 01/15/21 09:43 Ksaqiuv-Wsc-Kpo Reductase AdvReac Joint Verified 01/15/21 09:43 Inhibitor Pain, MUSCLE ACHES Review of Systems Review of Systems: All systems reviewed & are unremarkable except as noted in HPI and below ENT: Denies sore throat Musculoskeletal: Musculoskeletal: Denies back pain Neurologic: Denies confusion and Denies syncope [facility] Past Medical History Medical History Abdominal aortic aneurysm Stable. Followed by vascular surgery at [facility]. Benign prostatic hyperplasia Chronic kidney disease, stage 3 Baseline creatinine ranges between 1.4 and 1.60. Degenerative joint disease (DJD) of hip Dyslipidemia Essential (primary) hypertension Normal cardiac stress test (09/2020) Prediabetes Surgical History Surgical History History of hydrocelectomy (10/19/12) Left-sided hydrocelectomy. History of right inguinal hernia repair (10/19/12) History of tonsillectomy History of total right hip arthroplasty (10/21/20) Family History Family History Mother Family history of kidney disease Father Family history of coronary artery disease Sibling Family history of heart disease in male family member before age 55 Social History Social History Social History: The patient lives alone in his own home in [place]. He smoked 0.5 packs of cigarettes a day for nearly 20 years and quit in 1980. No alcohol or illicit substance abuse. Designates his son, Joel Abarca, as his surrogate decision maker and he wishes to be a full code. Smoking packs per day: 0.5 Smoking cigarettes per day: 10.0 Years smoked: 40 Smoking pack-years: 20.00 Smoking status: Former smoker Second hand tobacco smoke exposure: No Smoking end date: 06/06/80 Alcohol intake: never Substance use: never Substance use type: does not use Gender identity (if verbalized by the patient): Male Exam Const: General: healthy appearing, no acute distress and alert Orientation/consciousness: patient oriented x3 HENMT: Head: normal to inspection Neck: Neck: normal visual inspection and no lymphadenopathy Resp: Effort & Inspection: normal respiratory effort Auscultation: clear to auscultation bilaterally, no rales, no rhonchi and no wheezes Cardio: Jugular venous distension: no JVD Rate: regular rate Rhythm: regular rhythm Heart sounds: no murmurs GI: Inspection: non-distended GI Palp: Yes Soft to palpation and No Tenderness to palpation present (GI) : General: Yes bladder normal to palpation Skin: General skin exam: normal color Neuro: General: patient oriented x3 and moves all extremities Speech: normal speech Extrem: General: no edema Psych: Appearance: well kempt Affect: normal affect Course Vital Signs Vital signs: Vital Signs Temperature 36.6
[2021-01-15 10:19] LABS: Basophils Percent Auto 0.3 % (0.2-1.2); Eosinophils Percent Auto 0.3 % (0-4.4); Hematocrit 39.2 % (42.0-52.0); Hemoglobin 12.3 g/dL (14.0-18.0); Immature Granulocyte Absolute 0.09 K/mm3 (0.00-0.031); Immature Granulocyte Percent A 0.7 % (0-0.5); Lymphocytes Absolute Auto 1.11 K/mm3 (0.9-3.2); Lymphocytes Percent Auto 8.6 % (18.3-44.2); Mean Corpuscular HGB Conc 31.4 g/dl (32-36); Mean Corpuscular Hemoglobin 28.3 pg (26-34); Mean Corpuscular Volume 90.3 fl (80-100); Mean Platelet Volume 9.9 fl (7.4-10.4); Monocytes Absolute Auto 1.2 K/mm3 (0.1-0.6); Neutrophils Absolute Auto 10.4 K/mm3 (1.3-6.7); Neutrophils Percent Auto 81.1 % (45.5-73.1); Platelet Count Result 478 k/mm3 (150-375); Red Blood Count 4.34 M/mm3 (4.6-6.20); Red Cell Distribution Width 14.3 % (11.5-14.5); White Blood Count 12.9 K/mm3 (4.5-10.0)
[2021-01-15] MEDS: SODIUM CHLORIDE 0.9% IV 1,000 ML 999 ML IV CONT (10:21)
[2021-01-15 10:28] LABS: Lactic Acid Reflex 1.1 mmol/L (0.7-2.1)
[2021-01-15 10:29] LABS: INR 1.2; Prothrombin Time 14.9 Seconds (11.1-14.7)
[2021-01-15 10:31] LABS: Glucose Point of Care 91 mg/dl (65-105)
[2021-01-15 10:34] LABS: Alanine Aminotransferase 59 U/L (4-50); Albumin Level 3.7 g/dL (3.5-5.1); Alkaline Phosphatase 74 U/L (38-126); Anion Gap 12 mmol/L (8-16); Aspartate Amino Transferase 42 U/L (17-59); Bilirubin,Total 0.4 mg/dL (0.2-1.3); Blood Urea Nitrogen 50 mg/dL (9-20); Calcium 8.9 mg/dL (8.4-10.2); Carbon Dioxide 21 mmol/L (22-30); Chloride 102 mmol/L (98-107); Estimated CRCL calculation 22 ml/min; Estimated Glomerular Filt Rate 24; Glucose 98 mg/dL (65-110); Potassium 4.8 mmol/L (3.4-5.0); Sodium 135 mmol/L (137-145)
--- NOTE | 2021-01-15 10:42 | PC.NURSE ---
bladder scanned 1042 ~835mL
[2021-01-15 10:56] LABS: Creatine Kinase 35 U/L (55-170)
--- NOTE | 2021-01-15 11:09 | PC.NURSE ---
post residual void [address] murphy notified
[2021-01-15 12:05] LABS: Add Urine Microscopic? YES; Appearance Urine Cloudy (Clear); Bacteria Urine 1+ /hpf; Bilirubin Urine Negative (Negative); Blood Urine 1+ (Negative); Color Urine Yellow (Yellow); Glucose Urine UA Negative (Negative); Ketones Urine Negative (Negative); Leukocyte Esterase Ur 3+ LEU/UL (Negative); Mucus Urine Few /lpf; Nitrate Urine Positive (Negative); Protein Urine 1+ mg/dL (Negative); Specific Grav Ur 1.012 (1.001-1.035); Urobilinogen Urine Negative mg/dL (<2.0); WBC Clumps Urine Present /HPF; WBC Urine >75 /hpf
--- NOTE | 2021-01-15 14:08 | PM.IMHP ---
H&P: HPI History of Present Illness Date/Time: 01/15/21 14:08 Chief Complaint: Low blood pressure Narrative: 80-year-old male with past medical history of pre diabetes, hypertension and BPH who presented to the ER from primary care physician's office with generalized weakness and low blood pressures. The patient reports that he has been feeling ill since 01/01/2021. He noticed on that day that he began having generalized weakness and fatigue. He was having increased urinary frequency and urgency with decreased urine output. He thinks he was having sensation of incomplete bladder emptying. He was not having any dysuria. He denies any urinary incontinence. He was having get up every hour to urinate. He does have a history of BPH but reported that his urinary symptoms had improved after he was started on Flomax a few years ago. In the ER they placed a Laurent catheter and had return of 800 mL of cloudy blood-tinged urine. The patient's blood pressures at the outpatient office were 80/52. He received 2 L of normal saline in the ER and his blood pressures have subsequently normalized. He reports that his weakness and lightheadedness have improved. In the ER UA was consistent with UTI and patient was started on empiric antibiotic therapy with Rocephin. He denies having any fevers or chills and has been afebrile since presentation. He reports that he has had decreased appetite and his clothes are fitting looser over the last couple of weeks. Review of Systems Review of Systems: 12 systems were reviewed with pertinent positives and negatives per HPI. Except as documented in the HPI, all other systems were reviewed and are negative. [facility] Past Medical History Medical History Abdominal aortic aneurysm Stable. Followed by vascular surgery at [facility]. Benign prostatic hyperplasia Chronic kidney disease, stage 3 Baseline creatinine ranges between 1.4 and 1.60. Degenerative joint disease (DJD) of hip Dyslipidemia Essential (primary) hypertension Normal cardiac stress test (09/2020) Prediabetes Surgical History Surgical History History of hydrocelectomy (10/19/12) Left-sided hydrocelectomy. History of right inguinal hernia repair (10/19/12) History of tonsillectomy History of total right hip arthroplasty (10/21/20) Family History Family History Mother Family history of kidney disease Father Family history of coronary artery disease Sibling Family history of heart disease in male family member before age 55 Social History Social History (Updated 01/16/21 @ 01:52 by Mariana Mariee DO) Social History: He is and lives alone in his own home in [place]. He smoked 0.5 packs of cigarettes a day for nearly 20 years and quit in 1980. No alcohol or illicit substance abuse. Designates his son, Joel Abarca, as his surrogate decision maker and he wishes to be a full code. He has ambulated with a cane since his hip replacement in October of 2020. 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 Smoking packs per day: 0.5 Smoking cigarettes per day: 10.0 Years smoked: 40 Smoking pack-years: 20.00 Smoking status: Former smoker Second hand tobacco smoke exposure: No Smoking end date: 06/06/80 Alcohol intake: former Substance use: never Substance use type: does not use Gender identity (if verbalized by the patient): Male Spiritual care concerns: No Meds Home Medications and Allergies Home Medications Medication Instructions Recorded Confirmed Type enalapril maleate 20 mg PO QAM 10/07/20 01/15/21 History metformin 500 mg tablet,extended 500 mg PO QAM #90 tablet 10/12/20 01/15/21 Rx release 24 hr tamsulosin 0.4 mg capsule 0.4 mg PO HS #90 cap 12/29/20 01/15/21 Rx Allergies Allergy/AdvReac Type Camilla
[2021-01-15] MEDS: SODIUM CHLORIDE 0.9% IV 1,000 ML 125 ML IV CONT ×2 (15:32→23:08)
[2021-01-15] MEDS: TAMSULOSIN HCL 0.4 MG CAPSULE PO (20:33)
[2021-01-16 05:30] VITALS: BP 116/58; PULSE 74; RESP 16; TEMP 35.9; O2SAT 98
[2021-01-16 06:06] LABS: Hematocrit 36.4 % (42.0-52.0); Hemoglobin 11.4 g/dL (14.0-18.0); Mean Corpuscular HGB Conc 31.3 g/dl (32-36); Mean Corpuscular Hemoglobin 28.4 pg (26-34); Mean Corpuscular Volume 90.5 fl (80-100); Mean Platelet Volume 10.2 fl (7.4-10.4); Platelet Count Result 415 k/mm3 (150-375); Red Blood Count 4.02 M/mm3 (4.6-6.20); Red Cell Distribution Width 14.2 % (11.5-14.5); White Blood Count 11.8 K/mm3 (4.5-10.0)
[2021-01-16 06:31] LABS: Anion Gap 8 mmol/L (8-16); Blood Urea Nitrogen 38 mg/dL (9-20); Carbon Dioxide 21 mmol/L (22-30); Chloride 106 mmol/L (98-107); Estimated CRCL calculation 33 ml/min; Estimated Glomerular Filt Rate 39; Glucose 92 mg/dL (65-110); Sodium 135 mmol/L (137-145)
[2021-01-16] MEDS: SODIUM CHLORIDE 0.9% IV 1,000 ML 125 ML IV CONT ×2 (06:50→16:09)
[2021-01-16] MEDS: ENALAPRIL MALEATE 10 MG TABLET 20 MG PO (08:24)
[2021-01-16] MEDS: FINASTERIDE 5 MG TABLET PO (08:41)
[2021-01-16] MEDS: ENOXAPARIN 40 MG/0.4 ML SYRINGE SUB-Q (12:18)
--- NOTE | 2021-01-16 12:52 | WPDURCON ---
Assessment and Plan Assessment and plan (1) Acute urinary retention: Code(s): R33.8 - Other retention of urine Status: Acute Assessment and Plan: Agree with addition of finasteride. Would leave Laurent catheter in this week for decompression of bladder. Once patient is stable he will be discharged home and follow up next week in the office for a voiding trial. Urology Consult Note HPI Date Seen: 01/16/21 Requesting Physician: Mariana Mariee DO Primary Care Provider: Manish Bravo MD Consult Narrative Narrative: Jerry Palm is a 80 year old male who was admitted with hypotension and weakness. Patient tells me that he has BPH and has been on Flomax recently which had improved his voiding symptoms up until this past week when he developed having more nocturia. He was also having decreased force of stream. He was evaluated in the emergency room and found to have hypertension as well as possibly UTI. Laurent catheter was placed and patient states that they got at least 6-700 cc out. Finasteride has been added. In addition his creatinine level on admission was 2.6 and is now down to 1.7. Review of Systems Review of Systems: All systems reviewed & are unremarkable except as noted in HPI and below PMFSH Past Medical History Medical History Abdominal aortic aneurysm Stable. Followed by vascular surgery at [facility]. Benign prostatic hyperplasia Chronic kidney disease, stage 3 Baseline creatinine ranges between 1.4 and 1.60. Degenerative joint disease (DJD) of hip Dyslipidemia Essential (primary) hypertension Normal cardiac stress test (09/2020) Prediabetes Surgical History Surgical History History of hydrocelectomy (10/19/12) Left-sided hydrocelectomy. History of right inguinal hernia repair (10/19/12) History of tonsillectomy History of total right hip arthroplasty (10/21/20) Family History Family History Mother Family history of kidney disease Father Family history of coronary artery disease Sibling Family history of heart disease in male family member before age 55 Social History Social History Social History: He is and lives alone in his own home in [place]. He smoked 0.5 packs of cigarettes a day for nearly 20 years and quit in 1980. No alcohol or illicit substance abuse. Designates his son, Joel Abarca, as his surrogate decision maker and he wishes to be a full code. He has ambulated with a cane since his hip replacement in October of 2020. 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 Smoking packs per day: 0.5 Smoking cigarettes per day: 10.0 Years smoked: 40 Smoking pack-years: 20.00 Smoking status: Former smoker Second hand tobacco smoke exposure: No Smoking end date: 06/06/80 Alcohol intake: former Substance use: never Substance use type: does not use Gender identity (if verbalized by the patient): Male Spiritual care concerns: No Meds Home Medications and Allergies Home Medications Medication Instructions Recorded Confirmed Type enalapril maleate 20 mg PO QAM 10/07/20 01/15/21 History metformin 500 mg tablet,extended 500 mg PO QAM #90 tablet 10/12/20 01/15/21 Rx release 24 hr tamsulosin 0.4 mg capsule 0.4 mg PO HS #90 cap 12/29/20 01/15/21 Rx Allergies Allergy/AdvReac Type Severity Reaction Status Date / Time pravastatin Allergy Unknown Rash Verified 01/15/21 09:43 Oijalqu-Noj-Byn Reductase AdvReac Joint Verified 01/15/21 09:43 Inhibitor Pain, MUSCLE ACHES Vital Signs Vital Signs - 24 hr 01/15/21 13:23 01/15/21 15:01 01/15/21 15:33 Temperature 36.1 C L Pulse Rate 85 87 85 Respiratory Rate 19 14 20 Blood Pressure 133/65 136/
[2021-01-16 14:36] VITALS: BP 113/59; PULSE 85; RESP 20; TEMP 36.1; O2SAT 97
--- NOTE | 2021-01-16 18:23 | PM.IMPN ---
Progress Note: A&P Assessment and Plan (1) KARLA (acute kidney injury): Code(s): N17.9 - Acute kidney failure, unspecified Status: Acute (2) UTI (urinary tract infection): Qualifiers: Urinary tract infection type: acute cystitis Hematuria presence: with hematuria Qualified Code(s): N30.01 - Acute cystitis with hematuria Code(s): N39.0 - Urinary tract infection, site not specified Status: Acute (3) Urinary retention: Code(s): R33.9 - Retention of urine, unspecified Status: Acute (4) Acute renal failure superimposed on stage 3 chronic kidney disease: Qualifiers: Acute renal failure type: unspecified Chronic kidney disease stage 3 subtype: stage 3a (GFR 45-59) Qualified Code(s): N17.9 - Acute kidney failure, unspecified; N18.31 - Chronic kidney disease, stage 3a Code(s): N17.9 - Acute kidney failure, unspecified; N18.30 - Chronic kidney disease, stage 3 unspecified Status: Acute (5) Hypotension: Qualifiers: Hypotension type: hypotension due to hypovolemia Qualified Code(s): I95.89 - Other hypotension; E86.1 - Hypovolemia Code(s): I95.9 - Hypotension, unspecified Status: Acute (6) Status post right hip replacement: Code(s): Z96.641 - Presence of right artificial hip joint Status: Acute (7) History of hip replacement: Qualifiers: Laterality: unspecified laterality Qualified Code(s): Z96.649 - Presence of unspecified artificial hip joint Code(s): Z96.649 - Presence of unspecified artificial hip joint Status: Acute (8) Prediabetes: Code(s): R73.03 - Prediabetes Status: Chronic (9) Benign prostatic hyperplasia: Qualifiers: Lower urinary tract symptom presence: symptoms present Lower urinary tract symptom detail: urinary retention Qualified Code(s): N40.1 - Benign prostatic hyperplasia with lower urinary tract symptoms; R33.8 - Other retention of urine Code(s): N40.0 - Benign prostatic hyperplasia without lower urinary tract symptoms Status: Chronic (10) Essential (primary) hypertension: Code(s): I10 - Essential (primary) hypertension Status: Chronic (11) Dyslipidemia: Code(s): E78.5 - Hyperlipidemia, unspecified Status: Chronic (12) Leukocytosis: Qualifiers: Leukocytosis type: unspecified Qualified Code(s): D72.829 - Elevated white blood cell count, unspecified Code(s): D72.829 - Elevated white blood cell count, unspecified Status: Acute (13) Hyponatremia: Code(s): E87.1 - Hypo-osmolality and hyponatremia Status: Acute (14) Elevated transaminase level: Code(s): R74.01 - Elevation of levels of liver transaminase levels Status: Acute Additional Plan UTI in the setting of BPH: Urinalysis concerning for infection Urine cultures growing Gram-negative bacilli Continue IV ceftriaxone With current indwelling catheter state patient went be treated for complicated UTI insert be discharged on p.o. antibiotics when medically stable Blood cultures awaited Leukocytosis: Is now down trending Blood cultures pending Hypotension: Blood pressure is now stable KARLA secondary to obstructive uropathy: Noted to be improving after Laurent catheter placement Continue decompression Follow-up repeat BMP Continues to decline in a good direction the patient could potentially be discharged in the a.m. Urinary retention in the setting of BPH: Urology consult was sought and the following recommendations: Agree with addition of finasteride. Would leave Laurent catheter in this week for decompression of bladder. Once patient is stable he will be discharged home and follow up next week in the office for a voiding trial. Subjective Date/time seen: 01/16/21 18:23 80-year-old male with past medical history significant for prediabetes, hypertension, hyperlipidemia and BPH who was rec
[2021-01-16] MEDS: TAMSULOSIN HCL 0.4 MG CAPSULE PO (20:10)
[2021-01-16 20:19] VITALS: BP 156/65; PULSE 88; RESP 16; TEMP 36.8; O2SAT 96
[2021-01-16 20:21] LABS: Glucose Point of Care 125 mg/dl (65-105)
[2021-01-17] MEDS: SODIUM CHLORIDE 0.9% IV 1,000 ML 125 ML IV CONT ×2 (00:10→08:16)
[2021-01-17 06:00] VITALS: BP 134/65; PULSE 75; RESP 16; TEMP 36.1; O2SAT 96
[2021-01-17 06:11] LABS: Basophils Percent Auto 0.5 % (0.2-1.2); Eosinophils Absolute Auto 0.1 K/mm3 (0-0.3); Eosinophils Percent Auto 1.4 % (0-4.4); Hematocrit 36.2 % (42.0-52.0); Hemoglobin 11.4 g/dL (14.0-18.0); Immature Granulocyte Absolute 0.05 K/mm3 (0.00-0.031); Immature Granulocyte Percent A 0.6 % (0-0.5); Lymphocytes Absolute Auto 1.49 K/mm3 (0.9-3.2); Lymphocytes Percent Auto 17.4 % (18.3-44.2); Mean Corpuscular HGB Conc 31.5 g/dl (32-36); Mean Corpuscular Hemoglobin 28.7 pg (26-34); Mean Corpuscular Volume 91.2 fl (80-100); Mean Platelet Volume 10.1 fl (7.4-10.4); Monocytes Absolute Auto 0.9 K/mm3 (0.1-0.6); Monocytes Percent Auto 10.1 % (2.6-8.5); Platelet Count Result 412 k/mm3 (150-375); Red Blood Count 3.97 M/mm3 (4.6-6.20); White Blood Count 8.6 K/mm3 (4.5-10.0)
[2021-01-17 06:39] LABS: Anion Gap 7 mmol/L (8-16); Blood Urea Nitrogen 28 mg/dL (9-20); Calcium 7.9 mg/dL (8.4-10.2); Carbon Dioxide 20 mmol/L (22-30); Chloride 106 mmol/L (98-107); Estimated CRCL calculation 40 ml/min; Estimated Glomerular Filt Rate 49; Glucose 93 mg/dL (65-110); Potassium 4.7 mmol/L (3.4-5.0); Sodium 133 mmol/L (137-145)
[2021-01-17] MEDS: ENOXAPARIN 40 MG/0.4 ML SYRINGE SUB-Q (08:17)
[2021-01-17] MEDS: FINASTERIDE 5 MG TABLET PO (08:17)
[2021-01-17] MEDS: ENALAPRIL MALEATE 10 MG TABLET 20 MG PO (08:17)
[2021-01-17 14:00] VITALS: BP 146/76; PULSE 81; RESP 18; TEMP 36; O2SAT 97
--- NOTE | 2021-01-17 18:36 | PM.IMPN ---
Progress Note: A&P Assessment and Plan (1) KARLA (acute kidney injury): Code(s): N17.9 - Acute kidney failure, unspecified Status: Acute (2) UTI (urinary tract infection): Qualifiers: Hematuria presence: with hematuria Urinary tract infection type: acute cystitis Qualified Code(s): N30.01 - Acute cystitis with hematuria Code(s): N39.0 - Urinary tract infection, site not specified Status: Acute (3) Urinary retention: Code(s): R33.9 - Retention of urine, unspecified Status: Acute (4) Acute renal failure superimposed on stage 3 chronic kidney disease: Qualifiers: Acute renal failure type: unspecified Chronic kidney disease stage 3 subtype: stage 3a (GFR 45-59) Qualified Code(s): N17.9 - Acute kidney failure, unspecified; N18.31 - Chronic kidney disease, stage 3a Code(s): N17.9 - Acute kidney failure, unspecified; N18.30 - Chronic kidney disease, stage 3 unspecified Status: Acute (5) Hypotension: Qualifiers: Hypotension type: hypotension due to hypovolemia Qualified Code(s): I95.89 - Other hypotension; E86.1 - Hypovolemia Code(s): I95.9 - Hypotension, unspecified Status: Acute (6) Status post right hip replacement: Code(s): Z96.641 - Presence of right artificial hip joint Status: Acute (7) History of hip replacement: Qualifiers: Laterality: unspecified laterality Qualified Code(s): Z96.649 - Presence of unspecified artificial hip joint Code(s): Z96.649 - Presence of unspecified artificial hip joint Status: Acute (8) Prediabetes: Code(s): R73.03 - Prediabetes Status: Chronic (9) Benign prostatic hyperplasia: Qualifiers: Lower urinary tract symptom presence: symptoms present Lower urinary tract symptom detail: urinary retention Qualified Code(s): N40.1 - Benign prostatic hyperplasia with lower urinary tract symptoms; R33.8 - Other retention of urine Code(s): N40.0 - Benign prostatic hyperplasia without lower urinary tract symptoms Status: Chronic (10) Essential (primary) hypertension: Code(s): I10 - Essential (primary) hypertension Status: Chronic (11) Dyslipidemia: Code(s): E78.5 - Hyperlipidemia, unspecified Status: Chronic (12) Leukocytosis: Qualifiers: Leukocytosis type: unspecified Qualified Code(s): D72.829 - Elevated white blood cell count, unspecified Code(s): D72.829 - Elevated white blood cell count, unspecified Status: Acute (13) Hyponatremia: Code(s): E87.1 - Hypo-osmolality and hyponatremia Status: Acute (14) Elevated transaminase level: Code(s): R74.01 - Elevation of levels of liver transaminase levels Status: Acute Additional Plan UTI in the setting of BPH: Urinalysis concerning for infection Urine cultures growing Gram-negative bacilli Continue IV ceftriaxone With current indwelling catheter state patient went be treated for complicated UTI insert be discharged on p.o. antibiotics when medically stable Blood cultures awaited Will need voiding trial with urology this week and at that time they will evaluate need for further intervention KARLA secondary to obstructive uropathy: Noted to be improving after Laurent catheter placement Continue decompression Follow-up repeat BMP Continuing to improve, if normalized by tomorrow morning can discharge in the morning Subjective Date/time seen: 01/17/21 18:36 Interval history: No acute medical complaints, resting comfortably in bed, tolerating diet Review of Systems Review of Systems: All systems reviewed & are unremarkable except as noted in HPI and below ENT: Denies sore throat Cardiovascular: Cardiovascular: Denies syncope Musculoskeletal: Musculoskeletal: Denies back pain Neurologic: Denies confusion and Denies syncope Psychiatric: Psychiatric: Denies confusion Exam Narrative:
[2021-01-17] MEDS: TAMSULOSIN HCL 0.4 MG CAPSULE PO (20:05)
[2021-01-17 20:25] VITALS: BP 153/77; PULSE 86; RESP 16; TEMP 36.4; O2SAT 96
[2021-01-18] MEDS: SODIUM CHLORIDE 0.9% IV 1,000 ML 125 ML IV CONT (01:13)
[2021-01-18 05:58] VITALS: BP 153/80; PULSE 75; RESP 18; TEMP 36.1; O2SAT 96
[2021-01-18 06:17] LABS: Basophils Absolute Auto 0.1 K/mm3 (0.0-0.1); Basophils Percent Auto 0.7 % (0.2-1.2); Eosinophils Absolute Auto 0.2 K/mm3 (0-0.3); Eosinophils Percent Auto 3.2 % (0-4.4); Hematocrit 35.4 % (42.0-52.0); Hemoglobin 11.4 g/dL (14.0-18.0); Immature Granulocyte Absolute 0.03 K/mm3 (0.00-0.031); Immature Granulocyte Percent A 0.4 % (0-0.5); Lymphocytes Absolute Auto 1.31 K/mm3 (0.9-3.2); Lymphocytes Percent Auto 19.1 % (18.3-44.2); Mean Corpuscular HGB Conc 32.2 g/dl (32-36); Mean Corpuscular Hemoglobin 28.1 pg (26-34); Mean Corpuscular Volume 87.4 fl (80-100); Mean Platelet Volume 9.8 fl (7.4-10.4); Monocytes Absolute Auto 0.6 K/mm3 (0.1-0.6); Monocytes Percent Auto 9.1 % (2.6-8.5); Neutrophils Absolute Auto 4.6 K/mm3 (1.3-6.7); Neutrophils Percent Auto 67.5 % (45.5-73.1); Platelet Count Result 413 k/mm3 (150-375); Red Blood Count 4.05 M/mm3 (4.6-6.20); Red Cell Distribution Width 13.8 % (11.5-14.5); White Blood Count 6.9 K/mm3 (4.5-10.0)
[2021-01-18 06:22] LABS: Alanine Aminotransferase 91 U/L (4-50); Albumin Level 2.5 g/dL (3.5-5.1); Alkaline Phosphatase 54 U/L (38-126); Anion Gap 6 mmol/L (8-16); Aspartate Amino Transferase 56 U/L (17-59); Bilirubin,Total < 0.1 mg/dL (0.2-1.3); Blood Urea Nitrogen 26 mg/dL (9-20); Calcium 8.1 mg/dL (8.4-10.2); Carbon Dioxide 20 mmol/L (22-30); Chloride 109 mmol/L (98-107); Estimated CRCL calculation 46 ml/min; Estimated Glomerular Filt Rate 58; Glucose 97 mg/dL (65-110); Magnesium 1.7 mg/dL (1.6-2.3); Phosphorus 3.7 mg/dL (2.5-4.5); Potassium 4.5 mmol/L (3.4-5.0); Sodium 135 mmol/L (137-145)
[2021-01-18] MEDS: FINASTERIDE 5 MG TABLET PO (08:47)
[2021-01-18] MEDS: ENALAPRIL MALEATE 10 MG TABLET 20 MG PO (08:47)
[2021-01-18] MEDS: ENOXAPARIN 40 MG/0.4 ML SYRINGE SUB-Q (08:47)
--- NOTE | 2021-01-18 09:18 | PM.DS ---
DS: Admitting Diagnosis Admitting Diagnosis Lightheadedness and fatigue DS: Discharge Diagnosis Discharge Diagnosis (1) KARLA (acute kidney injury): Code(s): N17.9 - Acute kidney failure, unspecified Status: Acute (2) UTI (urinary tract infection): Qualifiers: Hematuria presence: with hematuria Urinary tract infection type: acute cystitis Qualified Code(s): N30.01 - Acute cystitis with hematuria Code(s): N39.0 - Urinary tract infection, site not specified Status: Acute (3) Acute urinary retention: Code(s): R33.8 - Other retention of urine Status: Acute DS: Summary Hospital Course Reason for hospitalization: urinary retention complicated UTI acute kidney injury malaise and lethargy Hospital Course: Patient is a 80-year-old male with past medical history of BPH, hypertension, diabetes presenting with about 2 weeks of nocturia and generalized malaise and lethargy. On admission, found to have acute urinary retention which likely precipitated development of urinary tract infection, and acute kidney injury. Patient was seen by Urology, and catheter inserted to relieve obstruction. Patient has been on IV antibiotics, ceftriaxone, while admitted, and we will convert that to p.o. cefpodoxime to complete a 10 day course on discharge. he is instructed to make an appointment with urologist within 1 week for a voiding trial and hopefully removal of catheter. Appointment with primary care for continued management of underlying diabetes and hypertension. Continue tamsulosin from home, and added finasteride we will give prescription for. Status at Discharge Functional status at discharge: uses cane/walker Overall status at discharge: patient is progressing back to baseline Time Spent with Patient Time attestation: Total time spent providing and/or coordinating discharge services: Time spent: Less than 30 minutes Exam Const: General: no acute distress Eyes: General: appearance normal, both eyes and all related structures Neck: Neck: no JVD Resp: Auscultation: clear to auscultation bilaterally Cardio: Rate: regular rate Rhythm: regular rhythm GI: Inspection: non-distended GI Palp: Yes Soft to palpation and No Tenderness to palpation present (GI) Auscultation: bowels sounds normal : Male General Exam: Yes normal external exam Urinary Catheter: Urinary Catheter: patent and draining Skin: General skin exam: normal color and no rashes or lesions noted Neuro: General: gait normal Motor exam (neuro): Normal motor muscle tone present throughout Extrem: General: normal to inspection and no edema DS: Data Data Completed and Pending Labs on day of discharge: Labs from last 24 hours 01/18/21 01/18/21 06:05 06:05 WBC 6.9 RBC 4.05 L Hgb 11.4 L Hct 35.4 L MCV 87.4 MCH 28.1 MCHC 32.2 RDW 13.8 Plt Count 413 H MPV 9.8 Immature Gran % (Auto) 0.4 Neut % (Auto) 67.5 Lymph % (Auto) 19.1 [facility] % (Auto) 9.1 H Eos % (Auto) 3.2 Baso % (Auto) 0.7 Lymph # (Auto) 1.31 [facility] # (Auto) 0.6 Eos # (Auto) 0.2 Baso # (Auto) 0.1 Abs Immat Gran (auto) 0.03 Absolute Neuts (auto) 4.6 Absolute Nucleated RBC 0.0 Nucleated RBC % 0.0 Sodium 135 L Potassium 4.5 Chloride 109 H Carbon Dioxide 20 L Anion Gap 6 L BUN 26 H Creatinine 1.20 Estim Creat Clear Calc 46 Estimated GFR 58 L Glucose 97 Calcium 8.1 L Phosphorus 3.7 Magnesium 1.7 Total Bilirubin < 0.1 L AST 56 ALT 91 H Alkaline Phosphatase 54 Total Protein 6.0 L Albumin 2.5 L Preliminary micro results at discharge 01/15/21 13:32 Blood Culture - Preliminary Blood 01/15/21 13:32 Blood Culture - Preliminary Blood Discharge Plan Discharge Attending physician on discharge: Jabier Mojica Consulting providers: Kushal Hanna Discharging Clinician: Jabier Mojica Anticipated Discharge Date/Time: 01/18/21 10:09 Seth
== END 2021-01-18 10:30 | disposition home or self-care (01) | DRG 683 ==
LOC: ANHED 09:45 → ANH3MED 15:03
PROVIDERS: Internal Medicine; Admitting Provider Internal Medicine; Emergency Provider Emergency Medicine; PCP Family Medicine; Visit Provider Internal Medicine
DX: N17.9 Acute kidney failure, unspecified (principal); E87.1 Hypo-osmolality and hyponatremia; N39.0 Urinary tract infection, site not specified; N13.8 Other obstructive and reflux uropathy; B96.89 Other specified bacterial agents as the cause of diseases classified elsewhere; N40.1 Benign prostatic hyperplasia with lower urinary tract symptoms; R33.8 Other retention of urine; R31.0 Gross hematuria; I12.9 Hypertensive chronic kidney disease with stage 1 through stage 4 chronic kidney disease, or unspecified chronic kidney disease; N18.30 Chronic kidney disease, stage 3 unspecified; I95.9 Hypotension, unspecified; E78.5 Hyperlipidemia, unspecified; M16.10 Unilateral primary osteoarthritis, unspecified hip; R73.03 Prediabetes; I71.4 Abdominal aortic aneurysm, without rupture; Z96.641 Presence of right artificial hip joint; Z87.891 Personal history of nicotine dependence
CPT/HCPCS: 36415; 76775; 80048; 80053; 81001; 82010; 82550; 82948; 83605; 83735; 84100; 84443; 85025; 85027; 85610; 85730; 87040; 87077; 87086; 87088; 87186; 93005; 96361; 96365; 99285; A9270; J0696; J1650; J7030

== ENCOUNTER 2023-09-20 08:36 | Outpatient (CLI) | payer MEDICARE, SELFPAY ==
--- NOTE | ~2023-09-20 | US_ITS ---
Ultrasound of the Abdominal Aorta INDICATION: Abdominal aortic aneurysm TECHNIQUE: Grayscale, color Doppler, and pulsed Doppler images of the aorta and common iliac arteries were obtained. COMPARISON: None. FINDINGS: Maximum vascular dimensions are as follows: Proximal aorta: 2.7 cm Mid aorta: 2.2 cm Distal aorta: 3.9 cm Right common iliac artery: 1.4 cm Left common iliac artery: 1.3 cm No periaortic fluid collection. IMPRESSION: 3.9 cm distal abdominal aortic aneurysm. Reviewed, dictated and finalized at location M.
== END 2023-09-20 08:37 ==
PROVIDERS: PCP Family Medicine; Visit Provider Family Medicine
DX: I71.40 Abdominal aortic aneurysm, without rupture, unspecified (principal)
CPT/HCPCS: 76775

== ENCOUNTER 2024-03-27 07:44 | Outpatient (CLI) | payer MEDICARE, SELFPAY ==
--- NOTE | ~2024-03-27 | US_ITS ---
EXAMINATION: US carotid duplex BI DATE: 03/27/2024 08:27 INDICATION: Blurry vision right eye TECHNIQUE: Grayscale, color Doppler, and pulsed Doppler images of the cervical carotid arteries were obtained. The degree of vessel stenosis is placed in one of the following categories: normal, <50%, 5 0-69%, >=70% but less than near-occlusion, near-occlusion, or total occlusion. Note that percent sten osis relative to normal distal artery lumen diameter is indirectly measured from velocity measurement s as described by Rigo, et al. Radiology 2003; [id number]. Notes: Normal: Peak systolic velocity <125 centimeters/sec and no plaque <50%. Peak systolic velocity <125 ( EDV <40; ICA/CCA PSV ratio <2.0; used these factors only a tandem lesions or low cardiac output or co ntralateral disease) 50-69 %: PSV 125-230 (EDV 40-100; ratio 2-4) >= 70% but less than near occlusion: PSV greater than 230 (EDV > 100; ratio> 4.0) Near Occlusion: PSV that is variable; markedly narrowed lumen Occlusion: Absent flow on color/spectral Doppler and no lumen on johnson scale. COMPARISON: None. FINDINGS: RIGHT: The right common carotid artery (CCA) peak systolic velocity (PSV) is 86 cm/s. The right internal car otid artery (ICA) PSV is 142 cm/s. The right ICA end-diastolic velocity (EDV) is 19 cm/s. The right I CA/CCA PSV ratio is 1.7. The external carotid artery (ECA) PSV is 200 cm/s. There is antegrade flow i n the right vertebral artery. LEFT: The left CCA PSV is 111 cm/s. The left ICA PSV is 90 cm/s. The left ICA EDV is 20 cm/s. The left ICA/ CCA PSV ratio is 0.8. The ECA PSV is 128 cm/s. There is antegrade flow in the left vertebral artery. IMPRESSION: 1. 50-69% stenosis in the right internal carotid artery by sonographic criteria. 2. Less than 50% stenosis in the left internal carotid artery by sonographic criteria. Reviewed, dictated and finalized at location B. IMPRESSION: 1. 50-69% stenosis in the right internal carotid artery by sonographic criteria . 2. Less than 50% stenosis in the left internal carotid artery by sonographic cr iteria.
== END 2024-03-27 07:45 | disposition home or self-care (01) ==
PROVIDERS: PCP Family Medicine; Visit Provider Family Medicine
DX: R09.89 Other specified symptoms and signs involving the circulatory and respiratory systems (principal); I65.23 Occlusion and stenosis of bilateral carotid arteries
CPT/HCPCS: 93880